=== PATIENT | male | born 1940 | race Caucasian/White ===

== ENCOUNTER 2016-11-29 19:28 | Inpatient (IN) | payer OTHER, BC ==
[~2016-11-29] VITALS: Ht 175.3 cm; Wt 85.7 kg
[~2016-11-29 19:28] MED LIST: AMLODIPINE BES2.5 MG PO; AMLODIPINE BESY10 MG PO; AMLODIPINE BESYL5 MG PO; BISACODYL5 MG PO; CARBIDOPA/LEVO1 EACH PO; DECADRON1 MG PO; DECADRON2 MG PO; ESCITALOPRAM OX10 MG PO; FAMOTIDINE20 MG PO; FINASTERIDE5 MG PO; K-DUR20 MEQ PO; LABETALOL HCL100 MG PO; LABETALOL HCL200 MG PO; LISINOPRIL20 MG PO; LOPRESSOR50 MG PO; ONE DAILY HEAL1 EACH PO; POTASSIUM CHLO10 ME3 PO; POTASSIUM GLUCO99 M1 PO; POTASSIUM-9999 MG PO; PRAVACHOL40 MG PO; REQUIP2 MG PO; SENNA PLUS TAB1 EACH PO; SENNA-TIME S T1 EACH PO; ST. JOSEPH ASPI81 MG PO; THERAGRAN1 TABLET PO; TYLENOL REGULA325 MG PO; XARELTO15 MG PO; XARELTO20 MG PO; ZESTRIL10 MG PO
[2016-11-29 20:05] LABS: HEMATOCRIT 40.1 % (38.0-50.0); MCHC 33.9 G/DL (30.0-36.0); MCV 85.5 FL (86-99); MEAN PLAT.VOLUME 10.7 uM^3 (9.0-12.4); PLATELET COUNT 156 K/uL (156-360); RBC DIS.WIDTH-CV 14.3 % (11.8-14.6); RED BLOOD COUNT 4.69 M/uL (4.00-5.50); WHITE BLOOD COUNT 9.6 K/uL (4.1-10.2)
[2016-11-29 20:16] LABS: CHLORIDE 107 mEq/L (99-109); POTASSIUM 3.4 mEq/L (3.7-5.4); SODIUM 142 mEq/L (136-147)
[2016-11-29 20:17] LABS: GLUCOSE 121 mg/dL (70-99)
[2016-11-29 20:19] LABS: ANION GAP 10 MEQ/L (2-14)
[2016-11-29 20:21] LABS: GFR ESTIMATE (CALCULATED) > 59 mL/min/
[2016-11-29 20:22] LABS: UREA NITROGEN (BUN) 12 mg/dL (9-23)
[2016-11-29 22:17] LABS: INFLUENZA A VIRAL ANTIGEN POSITIVE; INFLUENZA B VIRAL ANTIGEN NEGATIVE
[2016-11-29 22:40] LABS: ADD MIUA? YES; BILIRUBIN NEGATIVE; BLOOD NEGATIVE; COLOR YELLOW ((YELLOW)); GLUCOSE (STRIP) NEGATIVE; KETONES 15; LEUKOCYTES TRACE; NITRITE NEGATIVE; PROTEIN (STRIP) TRACE; SPECIFIC GRAVITY 1.023 (1.000-1.030)
[2016-11-29 22:53] LABS: BACTERIA RARE; CASTS NONE SEEN /LPF; CRYSTALS NONE SEEN; EPITHELIAL CELLS RARE; MUCUS 1+; RED BLOOD CELLS 0-5 /HPF (0-5); UCUL ADDED? NO; WHITE BLOOD CELLS 0-5 /HPF (0-5)
[2016-11-30] MEDS ORDERED: LISINOPRIL5 MG PO (00:19)
[2016-11-30] MEDS ORDERED: KLOR-CON 1010 ME1 PO (00:19)
[2016-11-30 02:42] LABS: TOTAL BILIRUBIN 0.7 mg/dL (0.0-1.0)
[2016-11-30 02:43] LABS: ALKALINE PHOSPHATASE 70 IU/L (3-129)
[2016-11-30 02:46] LABS: DIRECT BILIRUBIN 0.3 mg/dL (0.0-0.3)
[2016-11-30 08:45] LABS: HEMATOCRIT 38.1 % (38.0-50.0); MCH 29.1 PG (29.0-34.0); MCHC 34.1 G/DL (30.0-36.0); MCV 85.2 FL (86-99); MEAN PLAT.VOLUME 10.7 uM^3 (9.0-12.4); PLATELET COUNT 140 K/uL (156-360); RBC DIS.WIDTH-CV 14.4 % (11.8-14.6); RBC DIS.WIDTH-SD 43.6 % (39-53); RED BLOOD COUNT 4.47 M/uL (4.00-5.50); WHITE BLOOD COUNT 6.6 K/uL (4.1-10.2)
[2016-11-30 09:13] LABS: ANION GAP 11 MEQ/L (2-14); CHLORIDE 107 MEQ/L (99-109); POTASSIUM 3.5 MEQ/L (3.7-5.4); SAMPLE HEMOLYSIS CHECK 0; SAMPLE ICTERIC CHECK 0; SAMPLE LIPEMIA CHECK 0; SODIUM 144 MEQ/L (136-147)
[2016-11-30 09:19] LABS: GFR ESTIMATE (CALCULATED) > 59 mL/min/; GLUCOSE 98 mg/dL (70-99); UREA NITROGEN (BUN) 10 mg/dL (9-23)
[2016-11-30 16:28] VITALS: BP 182/100
[2016-11-30 18:25] VITALS: BP 164/96
[2016-11-30 19:54] VITALS: BP 152/84
[2016-12-01 00:02] VITALS: BP 155/82
[2016-12-01 03:44] VITALS: BP 163/76
[2016-12-01 05:32] LABS: HEMATOCRIT 39.1 % (38.0-50.0); MCH 28.2 PG (29.0-34.0); MCHC 32.5 G/DL (30.0-36.0); MCV 86.9 FL (86-99); MEAN PLAT.VOLUME 10.9 uM^3 (9.0-12.4); PLATELET COUNT 144 K/uL (156-360); RBC DIS.WIDTH-CV 14.6 % (11.8-14.6); RBC DIS.WIDTH-SD 46.3 % (39-53); WHITE BLOOD COUNT 5.8 K/uL (4.1-10.2)
[2016-12-01 06:22] LABS: ANION GAP 9 MEQ/L (2-14); CHLORIDE 109 MEQ/L (99-109); GFR ESTIMATE (CALCULATED) > 59 mL/min/; GLUCOSE 84 mg/dL (70-99); POTASSIUM 3.4 MEQ/L (3.7-5.4); SAMPLE HEMOLYSIS CHECK 0; SAMPLE ICTERIC CHECK 0; SAMPLE LIPEMIA CHECK 0; SODIUM 144 MEQ/L (136-147); UREA NITROGEN (BUN) 10 mg/dL (9-23)
[2016-12-01 08:22] VITALS: BP 184/96
[2016-12-01 11:53] VITALS: BP 185/104
[2016-12-01 16:47] VITALS: BP 146/85
[2016-12-01 21:18] VITALS: BP 158/84
[2016-12-02 00:08] VITALS: BP 157/81
[2016-12-02 04:29] VITALS: BP 175/83
[2016-12-02 07:20] LABS: EOSINOPHIL (%) 2.2 % (0-5); EOSINOPHIL COUNT 0.1 K/uL (0-0.3); HEMATOCRIT 40.6 % (38.0-50.0); IMMATURE GRANULOCYTE (%) 0.2 % (0.0-0.7); LYMPHOCYTE COUNT 1.5 K/uL (1.0-2.8); MCH 29.1 PG (29.0-34.0); MCHC 33.7 G/DL (30.0-36.0); MCV 86.4 FL (86-99); MEAN PLAT.VOLUME 11.3 uM^3 (9.0-12.4); MONOCYTE (%) 12.8 % (3-12); MONOCYTE COUNT 0.8 K/uL (0-0.8); NEUTROPHIL (%) 60.7 % (45-76); NEUTROPHIL COUNT 3.8 K/uL (1.8-6.4); PLATELET COUNT 151 K/uL (156-360); RBC DIS.WIDTH-CV 14.5 % (11.8-14.6); RBC DIS.WIDTH-SD 45.9 % (39-53); WHITE BLOOD COUNT 6.3 K/uL (4.1-10.2)
[2016-12-02 07:41] LABS: ANION GAP 10 MEQ/L (2-14); CHLORIDE 109 MEQ/L (99-109); GFR ESTIMATE (CALCULATED) > 59 mL/min/; GLUCOSE 93 mg/dL (70-99); POTASSIUM 3.4 MEQ/L (3.7-5.4); SAMPLE HEMOLYSIS CHECK 0; SAMPLE ICTERIC CHECK 0; SAMPLE LIPEMIA CHECK 0; SODIUM 143 MEQ/L (136-147); UREA NITROGEN (BUN) 10 mg/dL (9-23)
[2016-12-02 08:00] VITALS: BP 156/92
[2016-12-02 12:54] LABS: TROP-I INTERPRETATION NEGATIVE; TROPONIN-I 0.02 ng/mL (0.0-0.30)
[2016-12-02 13:04] LABS: MAGNESIUM 1.9 mg/dl (1.3-2.7)
[2016-12-02] MEDS ORDERED: TAMIFLU75 MG PO (16:24)
[2016-12-02] MEDS ORDERED: KLOR-CON 1010 ME1 PO (16:24)
[2016-12-02 19:38] LABS: TROP-I INTERPRETATION NEGATIVE; TROPONIN-I 0.02 ng/mL (0.0-0.30)
[2016-12-02 20:31] VITALS: BP 144/74
[2016-12-02 23:54] VITALS: BP 142/73
[2016-12-03 00:58] LABS: TROP-I INTERPRETATION NEGATIVE; TROPONIN-I 0.01 ng/mL (0.0-0.30)
[2016-12-03 08:06] VITALS: BP 136/85
[2016-12-03 15:30] VITALS: BP 130/74
== END 2016-12-03 17:56 | disposition home or self-care (01) | DRG 194 ==
LOC: EXP 19:28 → EME 19:28 → 3EAST 11-30 01:35 → EDOF 11-30 01:35 → 3EAST 11-30 16:11
PROVIDERS: Emergency Medicine; Hospitalist; Nurse Practitioner Adult Health; Physician Assistant; Student in an Organized Health Care Education/Training Program
DX: J09.X2 Influenza due to identified novel influenza A virus with other respiratory manifestations (principal); R09.02 Hypoxemia; I48.0 Paroxysmal atrial fibrillation; I47.2 Ventricular tachycardia; E87.6 Hypokalemia; E11.9 Type 2 diabetes mellitus without complications; I25.10 Atherosclerotic heart disease of native coronary artery without angina pectoris; I10 Essential (primary) hypertension; Z86.73 Personal history of transient ischemic attack (TIA), and cerebral infarction without residual deficits; Z95.1 Presence of aortocoronary bypass graft; Z95.5 Presence of coronary angioplasty implant and graft; Z86.718 Personal history of other venous thrombosis and embolism
CPT/HCPCS: 70450; 71020; 71250; 74176; 80048; 80076; 81003; 83605; 83735; 84100; 84484; 85025; 85027; 87040; 87502; 93005; 99202; 99281; 99285; J0360; J0610; J1644; J7030; J7050

== ENCOUNTER 2017-10-20 14:49 | Emergency (ER) | payer OTHER, BC ==
[~2017-10-20] VITALS: Ht 175.3 cm; Wt 83.3 kg
[~2017-10-20 14:49] MED LIST changes: +KLOR-CON 1010 ME1 PO; +LISINOPRIL5 MG PO; +TAMIFLU75 MG PO
[2017-10-20 16:19] LABS: HEMOGLOBIN 14.6 G/DL (12.5-16.6); MCH 29.4 PG (29.0-34.0); MCV 86.7 FL (86-99); RBC DIS.WIDTH-CV 13.7 % (11.8-14.6); RBC DIS.WIDTH-SD 43.1 % (39-53); RED BLOOD COUNT 4.96 M/uL (4.00-5.50); WHITE BLOOD COUNT 8.6 K/uL (4.1-10.2)
[2017-10-20 16:23] LABS: CHLORIDE 107 mEq/L (99-109); POTASSIUM 3.4 mEq/L (3.7-5.4); SODIUM 143 mEq/L (136-147)
[2017-10-20 16:25] LABS: GLUCOSE 111 mg/dL (70-99)
[2017-10-20 16:29] LABS: CREATININE 0.8 mg/dL (0.6-1.3); GFR ESTIMATE (CALCULATED) > 59 mL/min/ (58.99-99999)
[2017-10-20 16:30] LABS: UREA NITROGEN (BUN) 20 mg/dL (9-23)
[2017-10-20 17:06] LABS: PLAT.SUFFICIENCY ADEQUATE; PLATELET COUNT 161 K/uL (156-360)
[2017-10-20 17:32] LABS: APPEARANCE SL.HAZY ((CLEAR)); BILIRUBIN NEGATIVE; BLOOD SMALL; COLOR YELLOW ((YELLOW)); GLUCOSE (STRIP) NEGATIVE; KETONES NEGATIVE; LEUKOCYTES NEGATIVE; NITRITE NEGATIVE; PROTEIN (STRIP) 30; SPECIFIC GRAVITY 1.015 (1.000-1.030); UROBILINOGEN 0.2 MG/DL (0.2-1.0)
[2017-10-20 17:43] LABS: BACTERIA NONE SEEN /HPF; CALCIUM OXALATE CRYSTALS 1+ /HPF; EPITHELIAL CELLS NONE SEEN /HPF; MUCUS TRACE /LPF; RED BLOOD CELLS 15-20 /HPF (0-5); WHITE BLOOD CELLS 0-5 /HPF (0-5)
[2017-10-20] MEDS ORDERED: CIPRO500 MG PO (17:54)
[2017-10-20 18:06] VITALS: BP 200/98
== END 2017-10-20 18:09 | disposition home or self-care (01) ==
LOC: EME 14:49
PROVIDERS: Emergency Medicine Emergency Medical Services
DX: I10 Essential (primary) hypertension (principal); N39.0 Urinary tract infection, site not specified; R31.9 Hematuria, unspecified; E78.5 Hyperlipidemia, unspecified; I25.2 Old myocardial infarction; Z95.5 Presence of coronary angioplasty implant and graft; Z95.1 Presence of aortocoronary bypass graft; Z87.891 Personal history of nicotine dependence; Z86.73 Personal history of transient ischemic attack (TIA), and cerebral infarction without residual deficits; Z88.2 Allergy status to sulfonamides; Z88.0 Allergy status to penicillin; Z88.8 Allergy status to other drugs, medicaments and biological substances
CPT/HCPCS: 80048; 81003; 85027; 93005; 99281; 99284

== ENCOUNTER 2018-02-05 14:07 | Inpatient (IN) | payer OTHER, BC ==
[2018-02-05] VITALS (10 sets, daily range): BP systolic 109–224; BP diastolic 65–113
[~2018-02-05] VITALS: Ht 175.3 cm; Wt 81.5 kg
[~2018-02-05 14:07] MED LIST changes: +CIPRO500 MG PO
[2018-02-05 14:50] LABS: HEMATOCRIT 42.4 % (38.0-50.0); HEMOGLOBIN 14.7 G/DL (12.5-16.6); MCH 29.8 PG (29.0-34.0); MCHC 34.7 G/DL (30.0-36.0); RBC DIS.WIDTH-CV 13.2 % (11.8-14.6); RBC DIS.WIDTH-SD 41.7 % (39-53); RED BLOOD COUNT 4.93 M/uL (4.00-5.50); WHITE BLOOD COUNT 10.2 K/uL (4.1-10.2)
[2018-02-05 14:55] LABS: INTER. NORMALIZED RATIO 1.1
[2018-02-05 14:58] LABS: CHLORIDE 106 mEq/L (99-109); POTASSIUM 3.5 mEq/L (3.7-5.4); SODIUM 144 mEq/L (136-147)
[2018-02-05 15:00] LABS: GLUCOSE 145 mg/dL (70-99)
[2018-02-05 15:04] LABS: CREATININE 0.8 mg/dL (0.6-1.3); GFR ESTIMATE (CALCULATED) > 59 mL/min/ (58.99-99999)
[2018-02-05 15:05] LABS: UREA NITROGEN (BUN) 19 mg/dL (9-23)
[2018-02-05 15:12] LABS: TROP-I INTERPRETATION NEGATIVE; TROPONIN-I 0.01 ng/mL (0.0-0.30)
[2018-02-05 15:25] LABS: PLAT.SUFFICIENCY DECREASED; PLATELET COUNT 164 K/uL (156-360)
[2018-02-05 15:34] LABS: BILIRUBIN NEGATIVE; BLOOD NEGATIVE; COLOR AMBER ((YELLOW)); GLUCOSE (STRIP) NEGATIVE; KETONES 5; LEUKOCYTES NEGATIVE; NITRITE NEGATIVE; PROTEIN (STRIP) NEGATIVE; SPECIFIC GRAVITY 1.021 (1.000-1.030)
[2018-02-05 15:35] LABS: APPEARANCE CLEAR ((CLEAR))
[2018-02-05] MEDS ORDERED: ASPIRIN81 M2 PO (15:50)
[2018-02-05] MEDS ORDERED: LISINOPRIL40 MG PO (15:50)
[2018-02-05] MEDS ORDERED: METOPROLOL SUC100 MG PO (15:51)
[2018-02-05] MEDS ORDERED: CLONIDINE HCL0.1 MG PO (15:51)
[2018-02-05 22:53] LABS: APPEARANCE CLEAR ((CLEAR)); BILIRUBIN NEGATIVE; BLOOD NEGATIVE; COLOR STRAW ((YELLOW)); GLUCOSE (STRIP) NEGATIVE; KETONES 5; LEUKOCYTES NEGATIVE; NITRITE NEGATIVE; PROTEIN (STRIP) NEGATIVE; SPECIFIC GRAVITY 1.006 (1.000-1.030); UROBILINOGEN 0.2 MG/DL (0.2-1.0)
[2018-02-06] VITALS (22 sets, daily range): BP systolic 109–177; BP diastolic 62–100
[2018-02-06 07:40] LABS: CHLORIDE 103 MEQ/L (99-109); CREATININE 0.6 MG/DL (0.6-1.3); GFR ESTIMATE (CALCULATED) > 59 mL/min/ (58.99-99999); GLUCOSE 111 mg/dL (70-99); POTASSIUM 3.2 MEQ/L (3.7-5.4); SODIUM 142 MEQ/L (136-147); UREA NITROGEN (BUN) 10 mg/dL (9-23)
[2018-02-07] VITALS (31 sets, daily range): BP systolic 80–196; BP diastolic 52–100
[2018-02-07 09:01] LABS: HEMATOCRIT 47.1 % (38.0-50.0); HEMOGLOBIN 15.5 G/DL (12.5-16.6); MCH 28.3 PG (29.0-34.0); MCHC 32.9 G/DL (30.0-36.0); MCV 85.9 FL (86-99); RBC DIS.WIDTH-CV 13.1 % (11.8-14.6); RBC DIS.WIDTH-SD 40.5 % (39-53); RED BLOOD COUNT 5.48 M/uL (4.00-5.50); WHITE BLOOD COUNT 13.1 K/uL (4.1-10.2)
[2018-02-07 09:35] LABS: ALKALINE PHOSPHATASE 67 IU/L (3-129); ALT (GPT) 8 IU/L (3-49); AST (GOT) 15 IU/L (2-34); CHLORIDE 104 MEQ/L (99-109); CREATININE 0.8 MG/DL (0.6-1.3); GFR ESTIMATE (CALCULATED) > 59 mL/min/ (58.99-99999); GLUCOSE 130 mg/dL (70-99); PHOSPHORUS 2.5 mg/dL (2.5-4.9); PLAT.SUFFICIENCY ADEQUATE; PLATELET COUNT 219 K/uL (156-360); POTASSIUM 3.5 MEQ/L (3.7-5.4); SODIUM 143 MEQ/L (136-147); TOTAL PROTEIN 6.9 G/DL (6.4-8.3); UREA NITROGEN (BUN) 14 mg/dL (9-23)
[2018-02-08] VITALS (22 sets, daily range): BP systolic 120–199; BP diastolic 66–95
[2018-02-08 10:00] LABS: HEMOGLOBIN A1c (GLYCOHEMOGLOB) 5.5 % (Below 5.7)
[2018-02-08 11:11] LABS: BASOPHIL (%) 0.4 % (0-1); EOSINOPHIL (%) 1.2 % (0-5); EOSINOPHIL COUNT 0.1 K/uL (0-0.3); HEMATOCRIT 42.4 % (38.0-50.0); HEMOGLOBIN 14.2 G/DL (12.5-16.6); IMMATURE GRANULOCYTE (%) 0.4 % (0.0-0.7); LYMPHOCYTE (%) 14.9 % (15-42); LYMPHOCYTE COUNT 1.5 K/uL (1.0-2.8); MCH 29.3 PG (29.0-34.0); MCHC 33.5 G/DL (30.0-36.0); MCV 87.4 FL (86-99); MONOCYTE (%) 5.6 % (3-12); MONOCYTE COUNT 0.6 K/uL (0-0.8); NEUTROPHIL (%) 77.5 % (45-76); NEUTROPHIL COUNT 7.7 K/uL (1.8-6.4); PLATELET COUNT 206 K/uL (156-360); RBC DIS.WIDTH-CV 13.5 % (11.8-14.6); RBC DIS.WIDTH-SD 43.2 % (39-53); RED BLOOD COUNT 4.85 M/uL (4.00-5.50); WHITE BLOOD COUNT 9.9 K/uL (4.1-10.2)
[2018-02-08 12:00] LABS: ALBUMIN 3.5 G/DL (3.2-4.8); ALKALINE PHOSPHATASE 63 IU/L (3-129); ALT (GPT) 4 IU/L (3-49); AST (GOT) 12 IU/L (2-34); CHLORIDE 105 MEQ/L (99-109); CREATININE 0.8 MG/DL (0.6-1.3); GFR ESTIMATE (CALCULATED) > 59 mL/min/ (58.99-99999); GLUCOSE 182 mg/dL (70-99); MAGNESIUM 1.8 mg/dl (1.3-2.7); PHOSPHORUS 2.6 mg/dL (2.5-4.9); POTASSIUM 3.6 MEQ/L (3.7-5.4); SODIUM 143 MEQ/L (136-147); TOTAL BILIRUBIN 0.7 MG/DL (0.0-1.0); TOTAL PROTEIN 5.9 G/DL (6.4-8.3); UREA NITROGEN (BUN) 17 mg/dL (9-23)
[2018-02-09 01:49] VITALS: BP 144/74
[2018-02-09 03:26] VITALS: BP 142/82
[2018-02-09 06:16] LABS: BASOPHIL (%) 0.3 % (0-1); EOSINOPHIL (%) 1.5 % (0-5); EOSINOPHIL COUNT 0.2 K/uL (0-0.3); HEMOGLOBIN 13.4 G/DL (12.5-16.6); IMMATURE GRANULOCYTE (%) 0.4 % (0.0-0.7); LYMPHOCYTE (%) 14.2 % (15-42); LYMPHOCYTE COUNT 1.7 K/uL (1.0-2.8); MCH 29.4 PG (29.0-34.0); MCHC 33.5 G/DL (30.0-36.0); MCV 87.7 FL (86-99); MONOCYTE (%) 9.6 % (3-12); MONOCYTE COUNT 1.1 K/uL (0-0.8); NEUTROPHIL COUNT 8.7 K/uL (1.8-6.4); PLATELET COUNT 192 K/uL (156-360); RBC DIS.WIDTH-CV 13.5 % (11.8-14.6); RBC DIS.WIDTH-SD 43.5 % (39-53); RED BLOOD COUNT 4.56 M/uL (4.00-5.50); WHITE BLOOD COUNT 11.8 K/uL (4.1-10.2)
[2018-02-09 07:02] LABS: ALBUMIN 3.2 G/DL (3.2-4.8); ALKALINE PHOSPHATASE 60 IU/L (3-129); ALT (GPT) 5 IU/L (3-49); AST (GOT) 15 IU/L (2-34); CHLORIDE 105 MEQ/L (99-109); CREATININE 0.9 MG/DL (0.6-1.3); GFR ESTIMATE (CALCULATED) > 59 mL/min/ (58.99-99999); MAGNESIUM 1.9 mg/dl (1.3-2.7); PHOSPHORUS 3.5 mg/dL (2.5-4.9); POTASSIUM 3.7 MEQ/L (3.7-5.4); SODIUM 142 MEQ/L (136-147); TOTAL BILIRUBIN 0.6 MG/DL (0.0-1.0); TOTAL PROTEIN 5.6 G/DL (6.4-8.3)
[2018-02-09 07:03] LABS: GLUCOSE 105 mg/dL (70-99); UREA NITROGEN (BUN) 27 mg/dL (9-23)
[2018-02-09 07:16] VITALS: BP 159/80
[2018-02-09 11:45] VITALS: BP 141/82
== END 2018-02-09 16:40 | DRG 66 ==
LOC: EME 14:07 → EDOF 16:02 → 4WEST 16:02 → ENRESERV 16:02 → 4WEST 17:43 → ENRESERV 02-08 16:53 → 4WEST 02-08 17:25 → ENRESERV 02-08 17:33 → 5SOUTH 02-08 19:36 → ENPENDDIS 02-09 14:26 → 5SOUTH 02-09 16:40
PROVIDERS: Emergency Medicine; Internal Medicine; Internal Medicine Critical Care Medicine; Surgery
DX: I61.0 Nontraumatic intracerebral hemorrhage in hemisphere, subcortical (principal); R29.701 NIHSS score 1; R27.0 Ataxia, unspecified; E11.9 Type 2 diabetes mellitus without complications; E78.5 Hyperlipidemia, unspecified; I48.0 Paroxysmal atrial fibrillation; I25.10 Atherosclerotic heart disease of native coronary artery without angina pectoris; G20 Parkinson's disease; I10 Essential (primary) hypertension; Z95.1 Presence of aortocoronary bypass graft; Z95.5 Presence of coronary angioplasty implant and graft; Z86.718 Personal history of other venous thrombosis and embolism; Z86.711 Personal history of pulmonary embolism; Z79.82 Long term (current) use of aspirin; Z86.73 Personal history of transient ischemic attack (TIA), and cerebral infarction without residual deficits; Z82.3 Family history of stroke; Z82.49 Family history of ischemic heart disease and other diseases of the circulatory system
CPT/HCPCS: 70450; 70544; 70549; 70551; 71045; 80048; 80053; 81003; 83036; 83090 90; 83735; 84100; 84484; 85025; 85027; 85610; 86147 90; 87086; 87641; 92610 GN; 93005; 93306; 93971; 94799; 97530 GO; 99281; 99285; J7050

== ENCOUNTER → 2018-06-30 | Outpatient (CLI) | payer OTHER, BC ==
[~2018-06-30] MED LIST changes: +ASPIRIN81 M2 PO; +CLONIDINE HCL0.1 MG PO; +LISINOPRIL40 MG PO; +METOPROLOL SUC100 MG PO
== END | disposition home or self-care (01) ==
LOC: RAD 10:03
DX: R94.02 Abnormal brain scan (principal)
CPT/HCPCS: 70450